=== PATIENT | female | born 2000 | race American Indian/Alaskan Native ===

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

== ENCOUNTER 2021-07-21 16:30 | Emergency (ER) | payer MEDICAID ==
[2021-07-21] MEDS ORDERED: Ondansetron 4 MG Tab.DIS PO ONE (16:31)
[2021-07-21] MEDS ORDERED: Ciprofloxacin 500 MG Tab PO ONE (16:31)
[2021-07-21] MEDS ORDERED: Acetaminophen 500 MG Tab PO ONE (17:08)
[2021-07-21] MEDS ORDERED: Ondansetron 4 MG/2 ML SDV IVPUSH ONE (17:08)
[2021-07-21] MEDS: Sodium Chloride 0.9% 1,000 ML IV ONE ×2 (17:10→18:09)
[2021-07-21] MEDS ORDERED: Sodium Chloride 0.9% 1,000 ML IV ONE (17:55)
[2021-07-21 18:33] LABS: AMPHETAMINES,URINE POSITIVE (NEGATIVE); BARBITURATES,URINE NEGATIVE (NEGATIVE); BENZODIAZEPINE,URINE NEGATIVE (NEGATIVE); MDMA (ECSTASY), URINE NEGATIVE (NEGATIVE); METHADONE,URINE NEGATIVE (NEGATIVE); METHAMPHETAMINES,URINE POSITIVE (NEGATIVE); OPIATES,URINE NEGATIVE (NEGATIVE); OXYCODONE,URINE NEGATIVE (NEGATIVE); PHENCYCLIDINE,URINE NEGATIVE (NEGATIVE); TCA,URINE NEGATIVE (NEGATIVE)
[2021-07-21] MEDS ORDERED: cefTRIAXone 1 GM in Sodium Chloride 0.9% 50 ML IV ONE (18:37)
[2021-07-21 18:44] LABS: CORONAVIRUS COVID-19 NAA NEGATIVE (NEGATIVE)
[2021-07-21 18:50] LABS: CHLORIDE,CL 90 mmol/L (98-107); SODIUM,NA 130 mmol/L (136-145)
[2021-07-21] MEDS ORDERED: Iopamidol 612 MG/ML 100 ML Bottle IVPUSH ONE (19:02)
[2021-07-21] MEDS ORDERED: Ciprofloxacin 500 MG Tab ONE (19:50)
[2021-07-21] MEDS ORDERED: Ondansetron 4 MG Tab.DIS ONE (19:51)
== END 2021-07-21 20:28 | disposition home or self-care (01) ==
LOC: DL.ED 16:30
DX: N12 Tubulo-interstitial nephritis, not specified as acute or chronic (principal); F15.10 Other stimulant abuse, uncomplicated; Z20.822 Contact with and (suspected) exposure to COVID-19
CPT/HCPCS: 0240U; 36415; 74177; 80053; 80305; 80307; 81001; 82150; 83690; 83735; 84703; 85025; 86140; 87086; 87088; 87186; 96365; 96375; 99284; A9270; J0696; J2405; J7030; 99281

== ENCOUNTER 2022-04-14 13:49 | Emergency (ER) | payer BC, MEDICAID ==
[2022-04-14] MEDS: Lidocaine 1% 10 ML MDV INJECT ONE (15:10)
== END 2022-04-14 16:07 | disposition home or self-care (01) ==
LOC: DL.ED 13:49
DX: L02.211 Cutaneous abscess of abdominal wall (principal)
CPT/HCPCS: 10060; 87070; 87077; 87186; 99283-25

== ENCOUNTER 2022-04-16 11:08 | Emergency (ER) | payer MEDICAID | END 2022-04-16 12:44 | disposition left against medical advice (07) | LOC: DL.ED 11:08 | DX: Z53.21 Procedure and treatment not carried out due to patient leaving prior to being seen by health care provider (principal) ==

== ENCOUNTER 2023-01-13 21:00 | Emergency (ER) | payer MEDICAID ==
[~2023-01-13 21:00] MED LIST: LORazepam 2 MG/ML SDV IVPUSH ONE; Sodium Chloride 0.9% 10 ML Syringe FLUSH PRN
== END 2023-01-13 21:18 | disposition left against medical advice (07) ==
LOC: DL.ED 21:00
DX: S00.11XA Contusion of right eyelid and periocular area, initial encounter (principal); S00.83XA Contusion of other part of head, initial encounter; S50.812A Abrasion of left forearm, initial encounter; J45.909 Unspecified asthma, uncomplicated; Y04.0XXA Assault by unarmed brawl or fight, initial encounter
CPT/HCPCS: 99282; 99283